=== PATIENT | female | born 1985 | race Caucasian/White ===

== ENCOUNTER 2023-04-07 05:16 | Day surgery (SDC) | payer BC ==
[2023-04-07] VITALS (8 sets, daily range): BP systolic 107–112; BP diastolic 55–62; PULSE 60–82; TEMP 98–98.7
[~2023-04-07] VITALS: Ht 170.2 cm; Wt 75.4 kg
[~2023-04-07 05:16] MED LIST: LOW-OGESTREL 281 TAB PO; MOTRIN 800800 MG/TAB PO; PRENATAL 19 CH1 EACH PO
[2023-04-07 05:45] LABS: COLLECTION METHOD CLEAN CATCH
[2023-04-07] MEDS ORDERED: Ondansetron 4 MG/2 ML VIAL IV ONE (05:45)
[2023-04-07] MEDS ORDERED: NS 1,000 ML IV ONE (05:45)
[2023-04-07] MEDS ORDERED: Ketorolac 15 MG/ML VIAL IV ONE (05:45)
[2023-04-07 05:50] LABS: BASO # 0.1 K/mm3 (0.0-0.2); BASO % 0.3 % (0.0-2.0); EOS % 0.2 % (0.0-4.0); GRAN # 13.6 K/mm3 (1.4-6.5); GRAN % 78.7 % (42.2-75.2); HEMATOCRIT 38.9 % (37.0-47.0); HEMOGLOBIN 13.3 g/dl (12.5-16.0); LYMPH # 2.6 K/mm3 (1.2-3.4); LYMPH % 15.1 % (20.0-51.0); MEAN CELL VOLUME 91 fl (80.0-100.0); MEAN CORPUSCULAR HEMOGLOBIN 31 pg (27-31); MEAN CORPUSCULAR HGB CONC 34 g/dl (33.0-37.0); MEAN PLATELET VOLUME 10.4 fl (7.4-10.4); MONO # 0.9 K/mm3 (0.1-0.6); MONO % 5.4 % (1.7-9.3); PLATELET COUNT 342 K/mm3 (130-400); REDCELL DISTRIBUTION WIDTH-CV 13.2 % (11.5-14.5)
[2023-04-07 05:51] LABS: URINE APPEARANCE Clear (CLEAR/HAZY); URINE BLOOD Negative (NEGATIVE); URINE COLOR Yellow (YELLOW); URINE GLUCOSE Negative (NEGATIVE); URINE KETONE TRACE (NEGATIVE); URINE NITRATE Negative (NEGATIVE); URINE PROTEIN(semi-quant) Negative (NEGATIVE); URINE UROBILINOGEN 0.2 E.U/dL (0.2-1.0)
[2023-04-07 05:56] LABS: AMORPHOUS CRYSTAL Present (NOT PRESENT); MUCOUS Present (NOT PRESENT); URINE RBC None Seen /hpf (0-2)
[2023-04-07 06:16] LABS: ALBUMIN 4.2 gm/dL (3.5-5.0); BILIRUBIN,TOTAL 0.4 mg/dL (0.2-1.2); CALCIUM 9.8 mg/dL (8.4-10.2); CREATININE, serum 0.64 mg/dL (0.57-1.11); MAGNESIUM 1.7 mg/dL (1.6-2.6); POTASSIUM 3.4 mmol/L (3.5-4.5); TOTAL PROTEIN 7.4 gm/dL (6.2-8.1)
[2023-04-07] MEDS ORDERED: fentaNYL 50 MCG/ML 2 ML VIAL IV ONE (06:45)
[2023-04-07] MEDS ORDERED: NS 100 ML IV SCH (07:58)
[2023-04-07] MEDS ORDERED: Iohexol 300 - 100 ML VIAL IV ONE (07:58)
--- NOTE | 2023-04-07 09:50 | NUR ---
PATIENT ARRIVED TO FLOOR. VSS. ADMISSION COMPLETE. PATIENT CURRENTLY NPO STATUS AWAITING SURGERY THIS AFTERNOON. PATIENT REPORTS SOME PAIN 4/10, NO PAIN MEDS REQUESTED AT THIS TIME. INT TO LFT AC NO REDNESS, SWELLING OR DRAINAGE. INTAKE ASSESSMENT COMPLETE. PATIENT HAS NO REQUEST AT THIS TIME. CALL LIGHT IN REACH.
[2023-04-07] MEDS ORDERED: LR 1,000 ML IV SCH ×2 (10:00→10:15)
[2023-04-07] MEDS ORDERED: HYDROmorphone 0.5 MG/0.5 ML SYRINGE IV PRN (10:15)
[2023-04-07] MEDS ORDERED: D5NS & 20 mEq KCl 1,000 ML IV SCH (10:15)
[2023-04-07] MEDS ORDERED: Ondansetron 4 MG/2 ML VIAL IV PRN ×4 (10:15→12:15)
[2023-04-07] MEDS ORDERED: fentaNYL 50 MCG/ML 2 ML VIAL IV PRN ×2 (10:15→12:15)
[2023-04-07] MEDS ORDERED: fentaNYL 50 MCG/ML 5 ML VIAL ONE (10:58)
[2023-04-07] MEDS ORDERED: Rocuronium 50 MG/5 ML Multi-Dose VIAL ONE (10:58)
[2023-04-07] MEDS ORDERED: Lidocaine PF 2% (20 MG/ML) 5 ML VIAL ONE (10:59)
[2023-04-07] MEDS ORDERED: dexAMETHasone 10 MG/ML VIAL ONE (11:00)
[2023-04-07] MEDS ORDERED: Ondansetron 4 MG/2 ML VIAL ONE (11:00)
[2023-04-07] MEDS ORDERED: PERCOCET 325 MG1 TA2 PO (11:59)
[2023-04-07] MEDS ORDERED: oxyCODONE/Acetaminophen 5-325 MG TAB PO PRN (12:00)
[2023-04-07] MEDS ORDERED: Acetaminophen 325 MG TAB PO PRN (12:00)
[2023-04-07] MEDS ORDERED: hydrALAZINE 20 MG/ML 1 ML VIAL IV PRN (12:15)
[2023-04-07] MEDS ORDERED: Promethazine 25 MG/ML 1 ML VIAL IV PRN (12:15)
[2023-04-07] MEDS ORDERED: HYDROmorphone 2 MG/1 ML VIAL IV PRN (12:15)
[2023-04-07] MEDS ORDERED: droPERidol 2.5 MG/ML 2 ML VIAL IV PRN (12:15)
--- NOTE | 2023-04-07 12:25 | NUR ---
PATIENT ARRIVED BACK TO FLOOR FROM SURGERY @ 1215. 3 LAP SITES TO ABD . WITH [facility] CDI. PATIENT STATES NO COMPLIANTS OR REQUEST AT THIS TIME. CALL LIGHT IN REACH.
== END 2023-04-07 16:20 | disposition home or self-care (01) ==
LOC: COL.ER 05:16 → SURG 08:39 → SDCO 08:39 → SURG 08:40 → SDCO 16:20
PROVIDERS: Internal Medicine
DX: O99.611 Diseases of the digestive system complicating pregnancy, first trimester (principal); K35.80 Unspecified acute appendicitis; Z3A.10 10 weeks gestation of pregnancy
CPT/HCPCS: OP; G0378; J1100; J2405; J2543; J2704; J3010; J7030; J7120; Q9967

== ENCOUNTER 2023-10-29 06:22 | Inpatient (IN) | payer BC ==
[2023-10-29] VITALS (29 sets, daily range): BP systolic 100–140; BP diastolic 50–82; PULSE 48–93; TEMP 97.9–98.2
[~2023-10-29] VITALS: Ht 170.2 cm; Wt 81.8 kg
[~2023-10-29 06:22] MED LIST changes: +LR & Oxytocin 500 ML IV SCH; +LR 1,000 ML IV SCH; +PERCOCET 325 MG1 TA2 PO; +Penicillin G Potassium 2,500,000 UNITS in NS 100 ML IV SCH; +Penicillin G Potassium 5,000,000 UNITS in NS 100 ML IV ONE
--- NOTE | 2023-10-29 06:30 | NUR ---
PT AMBULATORY TO UNIT FOR SCHEDULED IOL. DENIES LOF/VB, DENIES REGULAR CONTRACTIONS, REPORTS POSITIVE MOVEMENT. ORIENTED TO LABOR ROOM AND PLAN OF CARE.
[2023-10-29 07:35] LABS: BASO # 0.1 K/mm3 (0.0-0.2); BASO % 0.5 % (0.0-2.0); EOS # 0.1 K/mm3 (0.0-0.7); EOS % 0.8 % (0.0-4.0); GRAN # 6.4 K/mm3 (1.4-6.5); GRAN % 62.6 % (42.2-75.2); HEMOGLOBIN 10.9 g/dl (12.5-16.0); LYMPH # 2.9 K/mm3 (1.2-3.4); LYMPH % 28.1 % (20.0-51.0); MEAN CELL VOLUME 89 fl (80.0-100.0); MEAN CORPUSCULAR HEMOGLOBIN 29 pg (27-31); MEAN CORPUSCULAR HGB CONC 33 g/dl (33.0-37.0); MEAN PLATELET VOLUME 13.3 fl (7.4-10.4); MONO # 0.8 K/mm3 (0.1-0.6); MONO % 7.6 % (1.7-9.3); PLATELET COUNT 263 K/mm3 (130-400); RED BLOOD COUNT 3.75 M/mm3 (4.10-5.30); REDCELL DISTRIBUTION WIDTH-CV 13.6 % (11.5-14.5)
[2023-10-29 07:37] LABS: HEMATOCRIT 33.2 % (37.0-47.0)
--- NOTE | 2023-10-29 09:24 | NUR ---
DR WILSON AT BEDSIDE. ULTRASOUND CONFIRMS VERTEX PRESENTATION. CATEOGORY 1 EFM TRACING. PT DENIES INTENSE PAIN WITH CONTRACTIONS. SVE 380/-2, AROM @ 0924 WITH BLOOD TINGED/CLEAR FLUID. PT TOLERATED EXAM WELL.
[2023-10-29] MEDS ORDERED: ROPivacaine PF 0.2% 200 ML IV ONE (10:12)
--- NOTE | 2023-10-29 10:20 | NUR ---
PT TO SITTING POSITION ON EDGE OF BED, DIFFICULTY TRACING EFM/TOCO DUE TO MATERNAL POSITIONING. LR BOLUS INFUSING. MATERNAL VITAL SIGNS STABLE. 1020: SS PER LAN BRAX[place], PT TOLERATED PROCEDURE WELL
[2023-10-29] MEDS ORDERED: Naloxone 0.4 MG/ML VIAL IV PRN ×2 (10:45→12:15)
[2023-10-29] MEDS ORDERED: diphenhydrAMINE 25 MG CAP PO PRN (10:45)
[2023-10-29] MEDS ORDERED: ePHEDrine 50 MG/10 ML VIAL IV PRN (10:45)
[2023-10-29] MEDS ORDERED: Ondansetron 4 MG/2 ML VIAL IV PRN (10:45)
[2023-10-29] MEDS ORDERED: diphenhydrAMINE 50 MG/ML 1 ML VIAL IV PRN (10:45)
--- NOTE | 2023-10-29 11:35 | NUR ---
1110: ON UNIT AND AT BEDSIDE. SVE COMPLETE/0 STATION. REMAINS AT BEDSIDE AND COACHES PT TO BEGIN PUSHING. IN OP/ACYNCLITIC POSITION. STRONG MATERNAL EFFORT. RECURRENT DEEP VARIABLES WITH PUSHING. \ 1133: VACUUM PLACED PER DUE TO DECREASED HEART TONES AND ACYNCLITIC POSITION MAKING IT DIFFICULT TO DELIVER. WILL PUSH WITH VAC ASSIST DURING NEXT CONTRACTION. 1135: VAD OF VIABLE FEMALE AFTER 1 PUSH WITH VAC ASSIST. NO POP OFFS. STRONG CRY NOTED TO . PLACED ON MATERNAL ABDOMEN, UPON PULSATION OF CORD, CORD CLAMPED X2 AND CUT BY FOB. INFANT SKIN TO SKIN WITH MOTHER. CARE OF INFANT ASSUMED BY JARETH RENEE. MATERNAL LOCHIA WNL AT THIS TIME. VITAL SIGNS STABLE. 1141: OF PLACENTA PER . PITOCIN BOLUS INFUSING. BEGINS REPAIR OF FIRST DEGREE LACERATION. PT TOLERATES PROCEDURE WELL. FUNDUS FIRM AT UMBILICUS WITH MASSAGE, LOCHIA WNL. VSS. WILL CONTINUE WITH CARES PER PROTOCOL.
[2023-10-29] MEDS ORDERED: Magnes Hydrox (MOM) 80 MG/ML 30 ML CUP PO PRN (12:00)
[2023-10-29] MEDS ORDERED: Loratadine 10 MG TAB PO PRN (12:00)
[2023-10-29] MEDS ORDERED: oxyCODONE 5 MG TAB PO PRN (12:15)
[2023-10-29] MEDS ORDERED: Phenylephrine/Mineral Oil/Petrolatum 57 GM TUBE RC PRN (12:15)
[2023-10-29] MEDS ORDERED: Measles/Mumps/Rubella Virus Vaccine Live w Diluent 0.5 ML VIAL SQ SCH (12:15)
[2023-10-29] MEDS ORDERED: Acetaminophen 500 MG TAB PO SCH (12:15)
[2023-10-29] MEDS ORDERED: Mag/Al Hydrox/Simeth Susp 30 ML CUP PO PRN (12:15)
[2023-10-29] MEDS ORDERED: Witch Hazel 50% Pads Bulk TUB TP PRN (12:15)
[2023-10-29] MEDS ORDERED: Ibuprofen 600 MG TAB PO SCH (12:15)
[2023-10-29] MEDS ORDERED: Sennosides/Docusate 8.6-50 MG TAB PO SCH (17:00)
[2023-10-29] MEDS ORDERED: traZODone 50 MG TAB PO PRN (21:00)
[2023-10-30] MEDS ORDERED: Acetaminophen 500 MG TAB PO SCH (02:30)
[2023-10-30] MEDS ORDERED: Ibuprofen 600 MG TAB PO SCH (02:30)
[2023-10-30 04:00] VITALS: BP 129/76; PULSE 60; TEMP 97.9
[2023-10-30 05:55] LABS: HEMATOCRIT 29.7 % (37.0-47.0); HEMOGLOBIN 9.7 g/dl (12.5-16.0)
[2023-10-30 08:15] VITALS: BP 122/58; PULSE 77; TEMP 97.7
[2023-10-30] MEDS ORDERED: Prenatal Vitamins/Iron/FA TAB PO SCH (09:00)
--- NOTE | 2023-10-30 09:41 | NUR ---
Initial visit; Parents thanked Diversity Specialist for offering congratulations and God's blessings for the of their daughter. Diversity Specialist thanked family for choosing [facility].
== END 2023-10-30 13:50 | disposition home or self-care (01) | DRG 806 ==
LOC: LDR 06:22 → OB 10:03
PROVIDERS: ADMIT Obstetrics & Gynecology
PROC: 10D07Z6 Extraction of Products of Conception, Vacuum, Via Natural or Artificial Opening (ICD-10-PCS; principal; 2023-10-29)
PROC: 3E033VJ Introduction of Other Hormone into Peripheral Vein, Percutaneous Approach (ICD-10-PCS; 2023-10-29)
PROC: 10907ZC Drainage of Amniotic Fluid, Therapeutic from Products of Conception, Via Natural or Artificial Opening (ICD-10-PCS; 2023-10-29)
PROC: 0HQ9XZZ Repair Perineum Skin, External Approach (ICD-10-PCS; 2023-10-29)
DX: O99.824 Streptococcus B carrier state complicating childbirth (principal); D62 Acute posthemorrhagic anemia; Z37.0 Single live birth; O70.0 First degree perineal laceration during delivery; O69.89X0 Labor and delivery complicated by other cord complications, not applicable or unspecified; O76 Abnormality in fetal heart rate and rhythm complicating labor and delivery; O90.81 Anemia of the puerperium; Z90.49 Acquired absence of other specified parts of digestive tract; Z3A.39 39 weeks gestation of pregnancy
CPT/HCPCS: J2540; J2795; J7120